=== PATIENT | female | born 2000 | race Caucasian/White ===

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

== ENCOUNTER 2021-06-14 19:54 | Emergency (ER) | payer OTHER ==
[2021-06-14 20:12] VITALS: TEMP 98.7; BMI 38.9
[2021-06-14 22:08] LABS: BASO % 0.1 % (0-2.0); EOS % 0.4 % (0-4.5); HEMATOCRIT 38.2 % (32.4-45.2); HEMOGLOBIN 11.9 GM/dL (10.7-15.3); LYMPH % 13.2 % (8-40); MCH 26.1 pg (25.7-33.7); MCHC 31.3 g/dl (32.0-36.0); MEAN CELL VOLUME 83.4 fl (80-96); MEAN PLT VOLUME 10.2 fl (7.5-11.1); MONO % 8.5 % (3.8-10.2); NEUT % 77.8 % (42.8-82.8); PLATELET COUNT 237 10^3/uL (134-434); RBC 4.58 M/mm3 (3.60-5.2); RDW 14.4 % (11.6-15.6); WHITE BLOOD COUNT 14.5 K/mm3 (4.0-10.0)
[2021-06-14 22:14] LABS: PH,URINE 5.5 (5.0-8.0); URINE APPEARANCE CLOUDY; URINE BILIRUBIN NEGATIVE (NEGATIVE); URINE COLOR YELLOW; URINE GLUCOSE (UA) NEGATIVE (NEGATIVE); URINE KETONE TRACE (NEGATIVE); URINE LEUK ESTERASE NEGATIVE (NEGATIVE); URINE NITRITE NEGATIVE (NEGATIVE); URINE PROTEIN NEGATIVE (NEGATIVE); URINE UROBILINOGEN 0.2 mg/dL (0.2-1.0)
[2021-06-14 22:15] LABS: INR 1.16 (0.83-1.09); PROTHROMBIN TIME (PATIENT) 13.4 SEC (9.7-13.0)
[2021-06-14 22:16] LABS: HCG,QUALITATIVE URINE Negative
[2021-06-14 22:18] LABS: ACTIVATED PTT 31.1 SECONDS (25.2-36.5)
[2021-06-14 22:38] LABS: CALCIUM 8.6 mg/dL (8.5-10.1)
[2021-06-14 22:39] LABS: ALBUMIN 3.6 g/dl (3.4-5.0); BLOOD UREA NITROGEN 10.1 mg/dL (7-18)
[2021-06-14 22:42] LABS: CREATININE 0.7 mg/dL (0.55-1.3)
[2021-06-14 22:43] LABS: BILIRUBIN,TOTAL 0.5 mg/dL (0.2-1)
[2021-06-15] MEDS ORDERED: ACETAMINOPHEN 1000 MG/100 ML BAG IVPB ONE (02:39)
[2021-06-15] MEDS ORDERED: ACETAMINOPHEN INJECTION 100 ML IVPB ONE (02:40)
[2021-06-15 03:54] VITALS: BP 113/65; PULSE 78
== END 2021-06-15 04:06 | disposition home or self-care (01) ==
LOC: JER 19:54
PROC: 3E033GC Introduction of Other Therapeutic Substance into Peripheral Vein, Percutaneous Approach (ICD-10-PCS; principal; 2021-06-14)
DX: R07.89 Other chest pain (principal)
CPT/HCPCS: 36415; 71275-TC; 80053; 81003; 83735; 84439; 84443; 84484; 84703; 85025; 85610; 85730; 93005; 93010; 96374; 99285-25